=== PATIENT | female | born 1955 | race Caucasian/White ===

== ENCOUNTER → 2017-06-29 13:42 | Outpatient (REF) | payer OTHER, MEDICAID, SELFPAY ==
[2017-06-29 13:50] LABS: Microscopic, Urine URINE MICROSCOPIC (MICROSCOPIC)
[2017-06-29 14:12] LABS: Appearance,Urine CLOUDY (Clear); Blood, Urine 2+ (Negative); Color,Urine YELLOW (Yellow); Glucose,Urine (UA) Negative (Negative); Ketones,Urine Negative (Negative); Leukocyte Esterase,Urine 2+ (Negative); Nitrate,Urine POSITIVE (Negative); Protein,Urine 2+ (Negative)
[2017-06-29 14:14] LABS: Bilirubin,Urine Negative (Negative)
[2017-06-29 14:20] LABS: Amphetamine/Metha Screen,Urine Negative ng/mL (<1000); Barbiturates Screen,Urine Positive ng/mL (<200); Benzodiazepines Screen,Urine Positive ng/mL (200); Cannabinoid Screen,Urine Negative ng/mL (<50); Cocaine Screen,Urine Negative ng/g (<300); Methadone Screen,Urine Negative ng/mL (<300); Opiate Screen,Urine Positive ng/mL (<300); Phencyclidine Screen,Urine Negative ng/mL (<25)
[2017-06-29 14:40] LABS: WBC,Urine 50-100 #/hpf (0-3)
[2017-06-29 14:41] LABS: Bacteria,Urine 4+ /lpf; Hyaline Casts,Urine Occasional #/lpf (0); Other Crystals,Urine 1+ /lpf; Triple Phosphate Crystal,Urine 1+ /lpf
== END ==
LOC: LAB 13:42
PROVIDERS: Visit Provider Emergency Medicine
DX: R30.9 Painful micturition, unspecified; R10.9 Unspecified abdominal pain
CPT/HCPCS: 80305; 81001; 87086; 87088; 87186

== ENCOUNTER 2017-06-30 11:35 | Outpatient (CLI) | payer OTHER, MEDICAID, SELFPAY ==
[2017-06-30 11:38] VITALS: BMI 37.3
[2017-06-30 13:28] LABS: Basophils # 0.1 K/mm3 (0-0.2); Basophils % 0.4 % (0.1-2.0); Eosinophils % 0.2 % (0.1-12.0); Hematocrit 39.9 % (37.0-47.0); Hemoglobin 12.6 g/dL (12.2-16.2); Lymphocytes # 2.1 K/mm3 (0.7-4.5); Lymphocytes % 10.7 K/mm3 (10-50); MANUAL DIFFERENTIAL MANUAL DIFFERENTIAL (MANUAL DIFF); Mean Corpuscular HGB Conc 31.5 g/dL (31.8-35.4); Mean Corpuscular Hemoglobin 28.7 pg (27.0-31.2); Mean Corpuscular Volume 91.3 fl (81-99); Mean Platelet Volume 7.8 fl (7.4-10.4); Monocytes # 0.8 K/mm3 (0.1-1.0); Monocytes % 3.9 % (1.7-9.3); Neutrophils # 16.4 K/mm3 (1.8-7.8); Neutrophils % 84.7 % (37.0-80.0); Platelet Count 321 K/mm3 (142-424); Red Blood Count 4.37 M/mm3 (4.20-5.40); Red Cell Distribution Width 13.7 % (11.5-17.5); White Blood Count 19.4 K/mm3 (4.8-10.8)
[2017-06-30 13:44] LABS: Alanine Aminotransferase 23 U/L (12-78); Albumin Level 2.2 gm/dL (3.4-5.0); Albumin/Globulin Ratio 0.4 (1.1-1.8); Alkaline Phosphatase 156 U/L (46-116); Anion Gap 8.4 mEq/L (5-15); Aspartate Amino Transferase 39 U/L (15-37); Bilirubin,Total 0.6 mg/dL (0.2-1.0); Blood Urea Nitrogen 24 mg/dL (7-18); Calcium 11.5 mg/dL (8.5-10.1); Chloride 86 mmol/L (98-107); Creatinine Clearance Estimated 94 mL/min (0-300); Creatinine,Serum 0.79 mg/dL (0.55-1.02); Estimated Glomerular Filt Rate 74 ml/min (>60); GFR (African American) 89 ML/MIN (>60); Globulin 5.8 gm/dl (1.3-3.2); Glucose 137 mg/dL (74-106); Potassium 3.4 mmoL/L (3.5-5.1); Sodium 133 mmol/L (136-145)
[2017-06-30 13:51] LABS: Carbon Dioxide 42 mmol/L (21.0-32.0)
[2017-06-30 14:03] LABS: Lymphocytes % 8 % (10-50); Monocytes % 3 % (2-9); Neutrophils % 89 % (42-76); Total Cells Counted 100
[2017-06-30 14:04] LABS: Platelet Estimate Normal
== END 2017-06-30 13:25 | disposition home or self-care (01) ==
LOC: INF 11:36
PROVIDERS: PCP Emergency Medicine; Visit Provider Emergency Medicine
DX: R10.9 Unspecified abdominal pain (principal); R30.9 Painful micturition, unspecified; Z45.2 Encounter for adjustment and management of vascular access device
CPT/HCPCS: 80053; 85007; 85025; 96374; J1642

== ENCOUNTER → 2017-07-17 13:18 | Outpatient (REF) | payer MEDICAID, SELFPAY ==
[2017-07-17 13:22] LABS: Microscopic, Urine URINE MICROSCOPIC (MICROSCOPIC)
[2017-07-17 13:26] LABS: Appearance,Urine TURBID (Clear); Blood, Urine 2+ (Negative); Color,Urine YELLOW (Yellow); Glucose,Urine (UA) Negative (Negative); Ketones,Urine TRACE (Negative); Leukocyte Esterase,Urine 3+ (Negative); Nitrate,Urine POSITIVE (Negative); Protein,Urine 2+ (Negative); Specific Gravity, Urine 1.015 (1.005-1.030)
[2017-07-17 13:33] LABS: Bilirubin,Urine Negative (Negative)
[2017-07-17 13:34] LABS: Bacteria,Urine 4+ /lpf; RBC,Urine 20-50 #/hpf (0-3); Squamous Epithelial Cell,Urine 20-50 #/hpf (0-5); WBC,Urine TNTC #/hpf (0-3)
== END ==
LOC: LAB 13:18
PROVIDERS: Visit Provider Emergency Medicine
DX: N39.0 Urinary tract infection, site not specified (principal)
CPT/HCPCS: 81001; 87086; 87088; 87186

== ENCOUNTER → 2017-08-07 08:56 | Outpatient (REF) | payer OTHER, MEDICAID, SELFPAY ==
[2017-08-07 11:08] LABS: Amphetamine/Metha Screen,Urine Negative ng/mL (<1000); Barbiturates Screen,Urine Positive ng/mL (<200); Benzodiazepines Screen,Urine Positive ng/mL (<200); Cannabinoid Screen,Urine Negative ng/mL (<50); Cocaine Screen,Urine Negative ng/mL (<300); Methadone Screen,Urine Negative ng/mL (<300); Opiate Screen,Urine Positive ng/mL (<300); Phencyclidine Screen,Urine Negative ng/mL (<25)
== END ==
LOC: LAB 08:56
PROVIDERS: Visit Provider Emergency Medicine
DX: Z79.899 Other long term (current) drug therapy (principal)
CPT/HCPCS: 80305

== ENCOUNTER 2017-08-11 20:34 | Observation (INO) ==
[2017-08-11 20:44] LABS: ABG Base Excess 13.8 mmol/L (-2.4-2.3); ABG HCO3 38.1 mmhg (22.0-26.0); ABG Oxygen Saturation 96 % (90-100); ABG PH 7.44 mmol/L (7.35-7.45); ABG PO2 98.5 mmhg (80-100); ABG TCO2 39.8 mmhg (23-27)
[2017-08-11 21:15] LABS: Basophils % 0.2 % (0.1-2.0); Eosinophils % 0.1 % (0.1-12.0); Hematocrit 32.6 % (37.0-47.0); Hemoglobin 9.1 g/dL (12.2-16.2); Lymphocytes # 1.7 K/mm3 (0.7-4.5); Lymphocytes % 8.6 K/mm3 (10-50); Mean Corpuscular Hemoglobin 30.9 pg (27.0-31.2); Mean Corpuscular Volume 110.7 fl (81-99); Mean Platelet Volume 7.2 fl (7.4-10.4); Monocytes # 0.9 K/mm3 (0.1-1.0); Monocytes % 4.5 % (1.7-9.3); Neutrophils # 16.7 K/mm3 (1.8-7.8); Neutrophils % 86.6 % (37.0-80.0); Platelet Count 508 K/mm3 (142-424); Red Blood Count 2.95 M/mm3 (4.20-5.40); Red Cell Distribution Width 17.5 % (11.5-17.5); White Blood Count 19.2 K/mm3 (4.8-10.8)
[2017-08-11 21:25] LABS: Albumin Level 2.6 gm/dL (3.4-5.0); Albumin/Globulin Ratio 0.6 (1.1-1.8); Anion Gap 7.6 mEq/L (5-15); Bilirubin,Total 0.3 mg/dL (0.2-1.0); Calcium 9.2 mg/dL (8.5-10.1); Globulin 4.1 gm/dl (1.3-3.2); Potassium 3.6 mmoL/L (3.5-5.1); Total Protein,Serum 6.7 gm/dL (6.4-8.2)
[2017-08-11 21:53] LABS: Allen's Test Acceptable; Oxygen 46% 7LPM NC %
--- NOTE | 2017-08-11 22:05 | Emergency Department Note ---
ED Disposition Clinical Impression: Acute exacerbation of chronic obstructive airways disease, Bronchitis Disposition: Admitted as Observation Condition on Discharge: Good - Critical Care Critical Care Time: No Attestation: On 08/11/17, the high probability of a clinically significant, sudden or life threatening deterioration of the following system(s) required my full and direct attention, intervention and personal management. The time I documented below is in addition to time spent performing reported procedures but includes the following listed in this critical care notation. Medical Decision Making - Medical Records Medical records reviewed: Yes: I reviewed the patient's medical records. - Saurabh Inquiry Pt receiving controlled substance: No Vital Signs: 08/11/17 20:34 08/11/17 21:15 08/11/17 22:16 Pulse Rate Pulse Rate [Right Brachial] 90 133 H Respiratory Rate 24 20 Blood Pressure [Right Arm] 152/11 123/86 Blood Pressure Mean [Right Arm] 58 98 Blood Pressure Source [Right Arm] Automatic Cuff Automatic Cuff Blood Pressure Position [Right Arm] Sitting Sitting 02 Sat by Pulse Oximetry 88 L 93 L 94 L Oxygen Delivery Method Non-Rebreather Oxygen Flow Rate (LPM) 65 08/11/17 22:48 08/11/17 23:46 08/11/17 23:56 Pulse Rate 126 H Pulse Rate [Right Brachial] 131 H Respiratory Rate 18 Blood Pressure [Right Arm] 158/91 Blood Pressure Mean [Right Arm] 113 Blood Pressure Source [Right Arm] Automatic Cuff Blood Pressure Position [Right Arm] Sitting 02 Sat by Pulse Oximetry 94 L 94 L Oxygen Delivery Method Venturi Mask Oxygen Flow Rate (LPM) 12 08/12/17 00:34 08/12/17 01:04 Pulse Rate Pulse Rate [Right Brachial] 141 H 121 H Respiratory Rate 20 24 Blood Pressure [Right Arm] 138/87 108/55 Blood Pressure Mean [Right Arm] 104 72 Blood Pressure Source [Right Arm] Automatic Cuff Automatic Cuff Blood Pressure Position [Right Arm] Sitting 02 Sat by Pulse Oximetry 94 L 94 L Oxygen Delivery Method Oxygen Flow Rate (LPM) - Lab Data Lab results reviewed: Yes: I reviewed the patient's lab results. Lab Results 08/11/17 20:41: Specimen Source Right radial, O2 % 46% 7lpm nc, ABG pH 7.44, ABG pCO2 58.0 H, ABG pO2 98.5, ABG HCO3 38.1 H, ABG Total CO2 39.8 H, ABG O2 Saturation 96, ABG Base Excess 13.8 H, Huy Test Acceptable 08/11/17 21:00: WBC 19.2 H, RBC 2.95 L, Hgb 9.1 L, Hct 32.6 L, MCV 110.7 H, MCH 30.9, MCHC 28.0 L, RDW 17.5, Plt Count 508 H, MPV 7.2 L, Neut % (Auto) 86.6 H, Lymph % (Auto) 8.6 L, [place] % (Auto) 4.5, Eos % (Auto) 0.1, Baso % (Auto) 0.2, Neut # (Auto) 16.7 H, Lymph # (Auto) 1.7, [place] # (Auto) 0.9, Eos # (Auto) 0.0, Baso # (Auto) 0.0, Total Counted 100, Neutrophils % (Manual) 86 H, Lymphocytes % (Manual) 10, Monocytes % (Manual) 4, Platelet Estimate Normal, Macrocytosis 1+ 08/11/17 21:00: Sodium 137, Potassium 3.6, Chloride 95 L, Carbon Dioxide 38 H, Anion Gap 7.6, BUN 14, Creatinine 0.65, Estimated Creat Clear 75, Estimated GFR 92, Est GFR ( Amer) 112, Glucose 176 H, Calcium 9.2, Total Bilirubin 0.3 , AST 26, ALT 22, Alkaline Phosphatase 158 H, Total Protein 6.7, Albumin 2.6 L, Globulin 4.1 H, Albumin/Globulin Ratio 0.6 L 08/11/17 21:00: Lactic Acid 2.7 H 08/11/17 23:27: Specimen Source Right radial, O2 % 55%, 40lpm, ABG pH 7.43, ABG pCO2 53.1 H, ABG pO2 88.6, ABG HCO3 34.3 H, ABG Total CO2 35.9 H, ABG O2 Saturation 95, ABG Base Excess 9.9 H, Huy Test Patient unable Result diagrams: 08/11/17 21:00 08/11/17 21:00 Orders (Tests/Meds): ED MEDICATIONS Generic Name Dose Route Start Last Admin Trade Name Freq PRN Reason Stop Dose Admin Levofloxacin/Dextrose 500 mg in 100 mls @ 100 mls/hr 08/12/17 01:30 Levaquin 500mg/100ml Premix IV 08/26/17 01:29 Q24H NAT Protocol Sodium Chloride 2 ml 08/11/17 22:04 Saline Flush 10ml Syringe IV 09/10/17 22:03 NEEDED PRN to Dilute Lorazepam inj Discontinued Medications Generic Name Dose Route Start Last Admin Trade Name Ming PRN Reason Stop Dose Admin Albuterol/Ipratropium 3 ml 08/11/17 23:43 08/11/17 23:45 Duoneb 3ml Neb IH 08/11/17 23:44 3 ml ONCE ONE Administration Furosemide 40 mg 08/11/17 21:21 08/11/17 21:40 Lasix 40mg/4ml Vial IV 08/11/17 21:22 40 mg ONCE ONE Administration Lorazepam 0.5 mg 08/11/17 22:04 08/11/17 22:11 Ativan 2mg/Ml Vial IV 08/11/17 22:05 0.5 mg ONCE ONE Administration Methylprednisolone Sodium Succinate 125 mg 08/11/17 21:22 08/11/17 21:30 Solu-Medrol 125mg/2ml Vial IV 08/11/17 21:23 125 mg ONCE ONE Administration ORDERS Category Date Time Status XR chest portable Stat Exams 08/11/17 20:43 Taken Urinalysis and Microscopic Stat Lab 08/11/17 20:43 Ordered Blood Culture Stat Micro 08/11/17 21:00 Received ABG [Arterial Blood Gas] Stat RT 08/11/17 20:38 Ordered - Radiology Data #1 Image(s): Chest Image Reviewed: Yes I reviewed the patient's radiology image Preliminary Findings: Abnormal (chronic changes ) - ECG Data Tracing #1 I reviewed this ECG and interpreted as documented below: Arrhythmias present: sinus tach Ischemic changes: non-specific ST-T wave changes Resp/SOB HPI - General Chief Complaint: Shortness of Breath/Dyspnea Stated Complaint: SOA Time Seen by Provider: 08/11/17 20:40 Mode of Arrival: EMS Source of Information: Patient, EMS, Medical Record Limitations: No Limitations Description of Symptoms (Recalled from ER Triage Doc. 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 and no fever or chest pain - MD Complaint: shortness of breath Onset (ago): hour(s) Severity: moderate Known history of: COPD, congestive heart failure Associated symptoms: cough Treatment prior to arrival: oxygen - Related Data Home oxygen amount: 4 liters Home Medications Medication Instructions Recorded Confirmed alprazolam 1 mg tablet 1 mg PO ONCE 04/27/17 06/02/17 aripiprazole 2 mg tablet 5 mg PO ONCE 04/27/17 06/02/17 baclofen 10 mg tablet 5 mg PO TID 04/27/17 06/02/17 bumetanide 2 mg tablet 2 mg PO BID 04/27/17 06/02/17 citalopram 20 mg tablet 20 mg PO ONCE 04/27/17 06/02/17 dexamethasone 4 mg tablet 4 mg PO Q12H 04/27/17 06/02/17 gabapentin 800 mg tablet 800 mg PO TID 04/27/17 06/02/17 lactulose 20 gram oral packet 20 g PO BID 04/27/17 06/02/17 nicotine 10 mg inhalation cartridge 1 inh INHALATION BID PRN 04/27/17 06/02/17 promethazine 25 mg tablet 25 mg PO Q6H PRN 04/27/17 06/02/17 Oxycodone HCl [Oxycodone (IR) 30mg 60 mg PO Q4HP PRN 06/01/17 06/02/17 Tab] Cefdinir [Omnicef 300mg Capsule] 300 mg PO BID 06/02/17 06/02/17 levoFLOXacin [Levaquin 750mg 750 mg PO DAILY 06/02/17 06/02/17 tablet] methylPREDNISolone [Medrol] 4 mg PO DIRECTED 06/02/17 06/02/17 Allergies Allergy/AdvReac Type Severity Reaction Status Date / Time aspirin Allergy Verified 06/01/17 11:28 azithromycin Allergy Verified 06/01/17 11:28 ketorolac [From Toradol] AdvReac Verified 06/01/17 11:28 Macrolide/Antibacterial Allergy Unknown Uncoded 01/26/17 15:33 Nonsteroidal Allergy Unknown Uncoded 01/26/17 15:33 Antiinflammatory Drug Tetracycline Allergy Unknown Uncoded 01/26/17 15:33 ERYTHROMYCIN AdvReac Unknown HURT Uncoded 01/26/17 15:33 STOMACH [facility] History I have reviewed the patient's past medical history: Yes Medical History: Reports:: Cancer (colon) - Social History Smoking Status: Current every day smoker Tobacco Type: cigarettes Alcohol Intake: never - Psychiatric History Expresses thoughts of harming self/others: None Suicide Plan Description: No Plan ROS Obtained: Yes All systems reviewed & no additional complaints - Constitutional Constitutional: Denies fever(s) - Eyes Eyes: Denies change in vision - ENT Ears, Nose, Mouth, and Throat: Denies sore throat - Cardiovascular Cardiovascular: Denies chest pain, Reports dyspnea - Respiratory Respiratory: Yes as per HPI, No change in phlegm color, Yes cough, No coughing up blood - Gastrointestinal Gastrointestingal: Denies: abdominal pain, vomiting - Genitourinary Female Genitourinary: Denies hematuria - Musculoskeletal Musculoskeletal: Denies joint pain - Integumentary/Breasts Skin/Breast: Denies rash - Neurologic Neurologic: Denies seizure-like activity Physical Exam - General General appearance: in no apparent distress - Head Head exam: normocephalic - Eye Eye exam: Present: PERRL, EOMI. Absent: scleral icterus - ENT ENT exam: Present: mucous membranes dry - Neck Neck exam: Present: trachea midline - Respiratory Respiratory exam: Present: wheezes. Absent: respiratory distress - Cardiovascular Cardiovascular exam: Present: regular rate, systolic murmur, +S4 - Abdominal Exam Abdominal exam: Present: soft - Extremities Exam Extremities exam: Absent: calf tenderness - Neurological Exam Neurological exam: Present: alert, CN II-XII intact - Psychiatric Psychiatric exam: Present: anxious - Skin Skin exam: Absent: rash
[2017-08-11 22:09] LABS: Lymphocytes % 10 % (10-50); Monocytes % 4 % (2-9); Neutrophils % 86 % (42-76); Total Cells Counted 100
[2017-08-11 22:10] LABS: Macrocytosis 1+
[2017-08-11 23:29] LABS: ABG Base Excess 9.9 mmol/L (-2.4-2.3); ABG HCO3 34.3 mmhg (22.0-26.0); ABG Oxygen Saturation 95 % (90-100); ABG PH 7.43 mmol/L (7.35-7.45); ABG PO2 88.6 mmhg (80-100); ABG TCO2 35.9 mmhg (23-27)
[2017-08-11 23:32] LABS: Allen's Test Patient Unable
[2017-08-11 23:33] LABS: ABG PCO2 53.1 mmhg (35.0-45.0)
[2017-08-12 05:35] LABS: Basophils % 0.1 % (0.1-2.0); Hematocrit 26.1 % (37.0-47.0); Lymphocytes # 1.3 K/mm3 (0.7-4.5); Lymphocytes % 8.7 K/mm3 (10-50); Mean Corpuscular HGB Conc 27.9 g/dL (31.8-35.4); Mean Corpuscular Hemoglobin 31.3 pg (27.0-31.2); Mean Corpuscular Volume 112.2 fl (81-99); Mean Platelet Volume 7.2 fl (7.4-10.4); Monocytes # 0.6 K/mm3 (0.1-1.0); Monocytes % 3.9 % (1.7-9.3); Neutrophils % 87.3 % (37.0-80.0); Platelet Count 351 K/mm3 (142-424); Red Blood Count 2.32 M/mm3 (4.20-5.40); Red Cell Distribution Width 16.4 % (11.5-17.5); White Blood Count 14.9 K/mm3 (4.8-10.8)
[2017-08-12 05:45] LABS: Hemoglobin 7.3 g/dL (12.2-16.2)
[2017-08-12 06:02] LABS: Anion Gap 2.9 mEq/L (5-15); Calcium 8.8 mg/dL (8.5-10.1); Potassium 3.9 mmoL/L (3.5-5.1)
--- NOTE | 2017-08-12 07:35 | Pharmacy Consult Notes ---
[facility] Pharmacy VTE Monitoring - Patient Demographics Admission date: 08/12/17 Report Date: 08/12/17 Time: 07:35 Allergies/Adverse Reactions: Patient Allergies aspirin Allergy (Verified 06/01/17 11:28) azithromycin Allergy (Verified 06/01/17 11:28) ketorolac [From Toradol] Adverse Reaction (Verified 06/01/17 11:28) Macrolide/Antibacterial Allergy (Unknown, Uncoded 01/26/17 15:33) Nonsteroidal Antiinflammatory Drug Allergy (Unknown, Uncoded 01/26/17 15:33) Tetracycline Allergy (Unknown, Uncoded 01/26/17 15:33) ERYTHROMYCIN Adverse Reaction (Unknown, Uncoded 01/26/17 15:33) HURT STOMACH Height: 1.68 m Weight: 96.87 kg Patient Problems: Current Active Problems Acute exacerbation of chronic obstructive airways disease (Acute) Bronchitis (Acute) - VTE Risk Labs: VTE Related Lab Results Hgb 7.3 g/dL (12.2-16.2) L* 08/12/17 05:15 Hct 26.1 % (37.0-47.0) L 08/12/17 05:15 Plt Count 351 K/mm3 (142-424) D 08/12/17 05:15 BUN 15 mg/dL (7-18) 08/12/17 05:15 Creatinine 0.63 mg/dL (0.55-1.02) 08/12/17 05:15 Estimated Creat Clear 89 mL/min (0-300) 08/12/17 05:15 Was VTE Risk Assessment Performed: Yes VTE Score: 10 VTE Risk Level: Moderate Risk - Prophylaxis VTE Prophylaxis Ordered?: Yes Types of VTE Prophylaxis: TEDS Knee High Location of Applied Device: Bilateral Lower Extremeties - VTE Diagnosis Confirmed Treatment or plan recommended: Continue Current Treatment
[2017-08-12 08:51] LABS: Lymphocytes % 7 % (10-50); Monocytes % 4 % (2-9); Neutrophils % 87 % (42-76); Total Cells Counted 100
[2017-08-12 08:52] LABS: Macrocytosis 2+
--- NOTE | 2017-08-12 10:16 | History & Physical Report ---
*Admission Date: 08/12/17 *Chief complaint: sob *History of present illness: this wf was sent from [facility] for eval of sob with hx of chf and copd - she was seen in the ed and treated with o2 and breathing treatment and was admitted with abx and steroids - pt with known cancer and has chronic anxiety and pain - [facility] History I have reviewed the patient's past medical history: Yes Medical History: Reports:: Cancer (colon), Congestive Heart Failure, MRSA (arm and leg) Denies:: Diabetes Mellitus Type 1, Diabetes Mellitus Type 2 Other Medical History: Reports: Arthritis, Chemotherapy, Sinus Problems ( seasonal allergies) Other Surgeries: Yes: Cancer Surgery (colon/cervical/lung), Cholecystectomy, Colon Resection, Hysterectomy-TotalComment Only: Other (2 back sx) Amputation: No Fractures: Yes - *Social History Educational Level: Completed High School Smoking Status: Former smoker Tobacco Type: cigarettes # Packs/Day (cigarettes): 2 #Yrs smoked (if former smoker): 46 Smoking End Date: [id number] Alcohol Intake: never Occupational Status: retired Housing: correction - Psychiatric History Expresses thoughts of harming self/others: None Suicide Plan Description: No Plan Review of Systems - Review of Systems Review of systems:: pertinent systems reviewed and negative unless documented below - Constitutional Denies fever(s) - Eyes Denies change in vision - ENT Denies dizziness - *Cardiovascular Denies chest pain - *Respiratory Reports shortness of breath, Denies coughing up blood - *Gastrointestinal Denies abdominal pain - *Genitourinary Denies blood in urine - *Musculoskeletal Denies joint pain - Integumentary/Breasts Denies rash - *Neurologic Denies seizure-like activity - Psychiatric Reports anxiety Meds Home Medications Medication Instructions Recorded Confirmed Type alprazolam 1 mg tablet 0.5 mg PO ONCE 04/27/17 08/12/17 History citalopram 20 mg tablet 20 mg PO ONCE 04/27/17 08/12/17 History dexamethasone 4 mg tablet 4 mg PO Q12H 04/27/17 08/12/17 History gabapentin 800 mg tablet 800 mg PO TID 04/27/17 08/12/17 History lactulose 20 gram oral packet 10 gm PO BID 04/27/17 08/12/17 History nicotine 10 mg inhalation cartridge 1 inh INHALATION BID PRN 04/27/17 08/12/17 History promethazine 25 mg tablet 25 mg PO Q6H PRN 04/27/17 08/12/17 History Oxycodone HCl [Oxycodone (IR) 30mg 60 mg PO Q4HP PRN 06/01/17 08/12/17 History Tab] Acetaminophen [Tylenol 500mg 500 mg PO Q4HP PRN 08/12/17 08/12/17 History tablet] Ciprofloxacin HCl [Cipro 500mg Tab] 500 mg PO BID 08/12/17 08/12/17 History Docusate Sodium [Colace 250mg 250 mg PO BIDP PRN 08/12/17 08/12/17 History capsule] Lansoprazole 15 mg PO DAILY 08/12/17 08/12/17 History Oxybutynin Chloride [Ditropan Xl] 5 mg PO BID 08/12/17 08/12/17 History Phenazopyridine HCl [Pyridium 200 pow PO TID 08/12/17 08/12/17 History 200mg Tablet] Polyethylene Glycol 3350 [Miralax 17 gm PO DAILY 08/12/17 08/12/17 History Powder] Sennosides [Senna Laxative] 8.6 mg PO BIDP PRN 08/12/17 08/12/17 History Simethicone [Mylicon 80mg Chewable 80 mg PO QID PRN 08/12/17 08/12/17 History Tablet] guaiFENesin [Mucinex 600mg tablet] 600 mg PO BID 08/12/17 08/12/17 History metroNIDAZOLE [Flagyl] 500 mg PO BID 08/12/17 08/12/17 History Allergies Allergy/AdvReac Type Severity Reaction Status Date / Time aspirin Allergy Verified 06/01/17 11:28 azithromycin Allergy Verified 06/01/17 11:28 ketorolac [From Toradol] AdvReac Verified 06/01/17 11:28 Macrolide/Antibacterial Allergy Unknown Uncoded 01/26/17 15:33 Nonsteroidal Allergy Unknown Uncoded 01/26/17 15:33 Antiinflammatory Drug Tetracycline Allergy Unknown Uncoded 01/26/17 15:33 ERYTHROMYCIN AdvReac Unknown HURT Uncoded 01/26/17 15:33 STOMACH Exam Vital signs and Labs for Last 24 Hours: Temp Pulse Resp BP Pulse Ox 97.0 F L 104 H 22 129/64 91 L 08/12/17 07:57 08/12/17 07:57 08/12/17 07:57 08/12/17 07:57 08/12/17 07:57 Laboratory Results - last 24 hr 08/11/17 20:41: Specimen Source Right radial, O2 % 46% 7lpm nc, ABG pH 7.44, ABG pCO2 58.0 H, ABG pO2 98.5, ABG HCO3 38.1 H, ABG Total CO2 39.8 H, ABG O2 Saturation 96, ABG Base Excess 13.8 H, Huy Test Acceptable 08/11/17 21:00: WBC 19.2 H, RBC 2.95 L, Hgb 9.1 L, Hct 32.6 L, MCV 110.7 H, MCH 30.9, MCHC 28.0 L, RDW 17.5, Plt Count 508 H, MPV 7.2 L, Neut % (Auto) 86.6 H, Lymph % (Auto) 8.6 L, [place] % (Auto) 4.5, Eos % (Auto) 0.1, Baso % (Auto) 0.2, Neut # (Auto) 16.7 H, Lymph # (Auto) 1.7, [place] # (Auto) 0.9, Eos # (Auto) 0.0, Baso # (Auto) 0.0, Total Counted 100, Neutrophils % (Manual) 86 H, Lymphocytes % (Manual) 10, Monocytes % (Manual) 4, Platelet Estimate Normal, Macrocytosis 1+ 08/11/17 21:00: Sodium 137, Potassium 3.6, Chloride 95 L, Carbon Dioxide 38 H, Anion Gap 7.6, BUN 14, Creatinine 0.65, Estimated Creat Clear 75, Estimated GFR 92, Est GFR ( Amer) 112, Glucose 176 H, Calcium 9.2, Total Bilirubin 0.3 , AST 26, ALT 22, Alkaline Phosphatase 158 H, Total Protein 6.7, Albumin 2.6 L, Globulin 4.1 H, Albumin/Globulin Ratio 0.6 L 08/11/17 21:00: Lactic Acid 2.7 H 08/11/17 23:27: Specimen Source Right radial, O2 % 55%, 40lpm, ABG pH 7.43, ABG pCO2 53.1 H, ABG pO2 88.6, ABG HCO3 34.3 H, ABG Total CO2 35.9 H, ABG O2 Saturation 95, ABG Base Excess 9.9 H, Huy Test Patient unable 08/12/17 01:30: Lactic Acid Fup @ 4Hr 2.4 H 08/12/17 02:20: Troponin I 0.18 H 08/12/17 03:40: Lactic Acid Fup @ 2Hr 3.0 H 08/12/17 05:15: Troponin I 0.23 H 08/12/17 05:15: WBC 14.9 H, RBC 2.32 L, Hgb 7.3 L*, Hct 26.1 L, MCV 112.2 H, MCH 31.3 H, MCHC 27.9 L, RDW 16.4, Plt Count 351 D, MPV 7.2 L, Neut % (Auto) 87.3 H, Lymph % (Auto) 8.7 L, [place] % (Auto) 3.9, Eos % (Auto) 0.0 L, Baso % ( Auto) 0.1, Neut # (Auto) 13.0 H, Lymph # (Auto) 1.3, [place] # (Auto) 0.6, Eos # ( Auto) 0.0, Baso # (Auto) 0.0, Total Counted 100, Neutrophils % (Manual) 87 H, Band Neutrophils % 2.0, Lymphocytes % (Manual) 7 L, Monocytes % (Manual) 4, Platelet Estimate Normal, Macrocytosis 2+ 08/12/17 05:15: Sodium 136, Potassium 3.9, Chloride 97 L, Carbon Dioxide 40 H, Anion Gap 2.9 L, BUN 15, Creatinine 0.63, Estimated Creat Clear 89, Estimated GFR 96, Est GFR ( Amer) 116, Glucose 129 H D, Calcium 8.8, Troponin I 0.22 H I & O for Last 24 hours: Intake & Output 08/09/17 08/10/17 08/11/17 08/12/17 11:59 11:59 11:59 11:59 Intake Total 820 / 820 Balance 820 / 820 Weight 213 lb 9 oz - Constitutional no acute distress, obese - *Routine HEENT Exam Head: Present: normocephalic Eye: Present: EOMI, PERRL ENT: Present: mucous membranes dry - *Routine Neck Exam Present: supple - *Routine Respiratory Exam Present: decreased breath sounds - *Routine Cardiovascular Exam Present: RRR, murmur, S4 - *Routine Abdominal Exam Present: soft - *Routine Extremities Exam Present: edema. Absent: calf tenderness - *Routine Skin Exam Present: intact - *Routine Neurological Exam Present: alert, CN II-XII intact - Routine Psychiatric Exam Present: anxious H&P: Result - Labs Labs: Short CBC 08/11/17 08/12/17 Range/Units 21:00 05:15 WBC 19.2 H 14.9 H (4.8-10.8) K/mm3 Hgb 9.1 L 7.3 L* (12.2-16.2) g/dL Hct 32.6 L 26.1 L (37.0-47.0) % Plt Count 508 H 351 D (142-424) K/mm3 BMP 08/11/17 08/12/17 21:00 05:15 Sodium 137 136 Potassium 3.6 3.9 Chloride 95 L 97 L Carbon Dioxide 38 H 40 H BUN 14 15 Creatinine 0.65 0.63 Glucose 176 H 129 H D Calcium 9.2 8.8 Cardiac Enzymes 08/12/17 08/12/17 08/12/17 Range/Units 02:20 05:15 05:15 Troponin I 0.18 H 0.23 H 0.22 H (0.00-0.06) ng/ml Liver Function 08/11/17 Range/Units 21:00 Total Bilirubin 0.3 (0.2-1.0) mg/dL AST 26 (15-37) U/L ALT 22 (12-78) U/L Alkaline Phosphatase 158 H (46-116) U/L Albumin 2.6 L (3.4-5.0) gm/dL Assessment and Plan (1) Elevated troponin Current visit: Yes Status: Acute Category: Medical Code(s): R74.8 - Abnormal levels of other serum enzymes (2) Acute exacerbation of chronic obstructive airways disease Current visit: Yes Status: Acute Category: Medical Code(s): J44.1 - Chronic obstructive pulmonary disease with (acute) exacerbation (3) Bronchitis Current visit: Yes Status: Acute Category: Medical Code(s): J40 - Bronchitis, not specified as acute or chronic (4) Anemia Current visit: Yes Status: Acute Category: Medical Code(s): D64.9 - Anemia , unspecified
--- NOTE | 2017-08-12 11:14 | Consult Report ---
History of Present Illness Consult date: 08/12/17 Requesting physician: Danny Fenton Consult reason: shortness of breath Chief complaint: SOA Additional Medical History:: 1. Tobacco use, discontinued 3 months ago A. COPD 2. Hypertension 3. 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 Anemia 4. CHF, likely high output heart failure related to anemia, 08/2017 History of present illness: 61-year-old white female resident of an extended care facility was referred to the emergency department for hypoxia. She denies any chest pain but does note occasional chest pressure or heaviness with associated shortness of breath. She reportedly had a "silent heart attack" many years ago with no further workup. States she is breathing better at this time. Patient was admitted for treatment of her acute on chronic COPD exacerbation. Troponins have returned mildly elevated during her stay and cardiology has been consulted for evaluation recommendations. Patient's hemoglobin has dropped from 9.1 down to 7.3 with improvement in her white count from about 19,000 down to 14,000 on antibiotic therapy. EKG on admission showed sinus tachycardia at [address]-T abnormalities. Echocardiogram being performed on the patient at the time of exam and preliminarily shows preserved to hyperdynamic LVEF. [facility] History Medical History: Reports:: Cancer (colon), Congestive Heart Failure, MRSA (arm and leg) Denies:: Diabetes Mellitus Type 1, Diabetes Mellitus Type 2 Other Medical History: Reports: Arthritis, Chemotherapy, Sinus Problems ( seasonal allergies) Other Surgeries: Yes: Cancer Surgery (colon/cervical/lung), Cholecystectomy, Colon Resection, Hysterectomy-TotalComment Only: Other (2 back sx) Amputation: No Fractures: Yes - *Social History Educational Level: Completed High School Smoking Status: Former smoker Tobacco Type: cigarettes # Packs/Day (cigarettes): 2 #Yrs smoked (if former smoker): 46 Smoking End Date: [id number] Alcohol Intake: never Occupational Status: retired Housing: [facility] - Psychiatric History Expresses thoughts of harming self/others: None Suicide Plan Description: No Plan Meds Home Medications Medication Instructions Recorded Confirmed Type alprazolam 1 mg tablet 0.5 mg PO 5XDAY 04/27/17 08/12/17 History citalopram 20 mg tablet 20 mg PO DAILY 04/27/17 08/12/17 History dexamethasone 4 mg tablet 4 mg PO BID 04/27/17 08/12/17 History gabapentin 800 mg tablet 800 mg PO TID 04/27/17 08/12/17 History nicotine 10 mg inhalation cartridge 1 inh INHALATION NEEDED PRN 04/27/1706/25 History promethazine 25 mg tablet 25 mg PO Q8HP PRN 04/27/17 08/12/17 History Oxycodone HCl [Oxycodone (IR) 30mg 45 mg PO Q4H 06/01/17 08/12/17 History Tab] Acetaminophen [Tylenol 500mg 500 mg PO Q4HP PRN 08/12/17 08/12/17 History tablet] Ciprofloxacin HCl [Cipro 500mg Tab] 500 mg PO MOWEFR 08/12/17 08/12/17 History Docusate Sodium [Colace 250mg 250 mg PO BIDP PRN 08/12/17 08/12/17 History capsule] Lactulose [Lactulose 10gm/15ml 30 ml PO DAILY 08/12/17 08/12/17 History Oral Soln] Lansoprazole 15 mg PO DAILY 08/12/17 08/12/17 History Lidocaine [Lidoderm 5% transdermal 3 each TP DAILY 08/12/17 08/12/17 History patch] Oxybutynin Chloride [Ditropan Xl] 5 mg PO BID 08/12/17 08/12/17 History Phenazopyridine HCl [Pyridium 200 mg PO TID 08/12/17 08/12/17 History 200mg Tablet] Polyethylene Glycol 3350 [Miralax 17 gm PO DAILY 08/12/17 08/12/17 History Powder] Sennosides [Senna Laxative] 8.6 mg PO BIDP PRN 08/12/17 08/12/17 History Simethicone [Mylicon 80mg Chewable 160 mg PO QIDP PRN 08/12/17 08/12/17 History Tablet] guaiFENesin [Mucinex 600mg tablet] 1,200 mg PO BID 08/12/17 08/12/17 History metroNIDAZOLE [Flagyl] 500 mg PO BID 08/12/17 08/12/17 History Allergies Allergy/AdvReac Type Severity Reaction Status Date / Time aspirin Allergy Verified 06/01/17 11:28 azithromycin Allergy Verified 06/01/17 11:28 ketorolac [From Toradol] AdvReac Verified 06/01/17 11:28 Macrolide/Antibacterial Allergy Unknown Uncoded 01/26/17 15:33 Nonsteroidal Allergy Unknown Uncoded 01/26/17 15:33 Antiinflammatory Drug Tetracycline Allergy Unknown Uncoded 01/26/17 15:33 ERYTHROMYCIN AdvReac Unknown HURT Uncoded 01/26/17 15:33 STOMACH Review of Systems - *Cardiovascular Reports chest pain, Reports shortness of breath with activity - *Respiratory Reports shortness of breath with activity - *Gastrointestinal Reports abdominal pain - *Musculoskeletal Reports joint pain - *Neurologic Denies seizure-like activity, Denies dizziness Exam Vital signs and Labs for Last 24 Hours: Temp Pulse Resp BP Pulse Ox 97.0 F L 104 H 22 129/64 91 L 08/12/17 07:57 08/12/17 07:57 08/12/17 07:57 08/12/17 07:57 08/12/17 07:57 Laboratory Results - last 24 hr 08/11/17 20:41: Specimen Source Right radial, O2 % 46% 7lpm nc, ABG pH 7.44, ABG pCO2 58.0 H, ABG pO2 98.5, ABG HCO3 38.1 H, ABG Total CO2 39.8 H, ABG O2 Saturation 96, ABG Base Excess 13.8 H, Huy Test Acceptable 08/11/17 21:00: WBC 19.2 H, RBC 2.95 L, Hgb 9.1 L, Hct 32.6 L, MCV 110.7 H, MCH 30.9, MCHC 28.0 L, RDW 17.5, Plt Count 508 H, MPV 7.2 L, Neut % (Auto) 86.6 H, Lymph % (Auto) 8.6 L, [place] % (Auto) 4.5, Eos % (Auto) 0.1, Baso % (Auto) 0.2, Neut # (Auto) 16.7 H, Lymph # (Auto) 1.7, [place] # (Auto) 0.9, Eos # (Auto) 0.0, Baso # (Auto) 0.0, Total Counted 100, Neutrophils % (Manual) 86 H, Lymphocytes % (Manual) 10, Monocytes % (Manual) 4, Platelet Estimate Normal, Macrocytosis 1+ 08/11/17 21:00: Sodium 137, Potassium 3.6, Chloride 95 L, Carbon Dioxide 38 H, Anion Gap 7.6, BUN 14, Creatinine 0.65, Estimated Creat Clear 75, Estimated GFR 92, Est GFR ( Amer) 112, Glucose 176 H, Calcium 9.2, Total Bilirubin 0.3 , AST 26, ALT 22, Alkaline Phosphatase 158 H, Total Protein 6.7, Albumin 2.6 L, Globulin 4.1 H, Albumin/Globulin Ratio 0.6 L 08/11/17 21:00: Lactic Acid 2.7 H 08/11/17 23:27: Specimen Source Right radial, O2 % 55%, 40lpm, ABG pH 7.43, ABG pCO2 53.1 H, ABG pO2 88.6, ABG HCO3 34.3 H, ABG Total CO2 35.9 H, ABG O2 Saturation 95, ABG Base Excess 9.9 H, Huy Test Patient unable 08/12/17 01:30: Lactic Acid Fup @ 4Hr 2.4 H 08/12/17 02:20: Troponin I 0.18 H 08/12/17 03:40: Lactic Acid Fup @ 2Hr 3.0 H 08/12/17 05:15: Troponin I 0.23 H 08/12/17 05:15: WBC 14.9 H, RBC 2.32 L, Hgb 7.3 L*, Hct 26.1 L, MCV 112.2 H, MCH 31.3 H, MCHC 27.9 L, RDW 16.4, Plt Count 351 D, MPV 7.2 L, Neut % (Auto) 87.3 H, Lymph % (Auto) 8.7 L, [place] % (Auto) 3.9, Eos % (Auto) 0.0 L, Baso % ( Auto) 0.1, Neut # (Auto) 13.0 H, Lymph # (Auto) 1.3, [place] # (Auto) 0.6, Eos # ( Auto) 0.0, Baso # (Auto) 0.0, Total Counted 100, Neutrophils % (Manual) 87 H, Band Neutrophils % 2.0, Lymphocytes % (Manual) 7 L, Monocytes % (Manual) 4, Platelet Estimate Normal, Macrocytosis 2+ 08/12/17 05:15: Sodium 136, Potassium 3.9, Chloride 97 L, Carbon Dioxide 40 H, Anion Gap 2.9 L, BUN 15, Creatinine 0.63, Estimated Creat Clear 89, Estimated GFR 96, Est GFR ( Amer) 116, Glucose 129 H D, Calcium 8.8, Troponin I 0.22 H I & O for Last 24 hours: Intake & Output 08/09/17 08/10/17 08/11/17 08/12/17 11:59 11:59 11:59 11:59 Intake Total 820 / 820 Balance 820 / 820 Weight 213 lb 9 oz - *Routine Neck Exam Absent: JVD, carotid bruit - *Routine Respiratory Exam Present: decreased breath sounds, rhonchi - *Routine Cardiovascular Exam Present: RRR, murmur. Absent: gallop, rubs - *Routine Extremities Exam Present: edema - *Routine Neurological Exam Present: alert, oriented X3, moving all extremities Assessment and Plan (1) Elevated troponin Current visit: Yes Status: Acute Category: Medical Code(s): R74.8 - Abnormal levels of other serum enzymes (2) Acute exacerbation of chronic obstructive airways disease Current visit: Yes Status: Acute Category: Medical Code(s): J44.1 - Chronic obstructive pulmonary disease with (acute) exacerbation (3) Bronchitis Current visit: Yes Status: Acute Category: Medical Code(s): J40 - Bronchitis, not specified as acute or chronic (4) Anemia Current visit: Yes Status: Acute Category: Medical Code(s): D64.9 - Anemia , unspecified (5) High output congestive heart failure Current visit: Yes Status: Acute Category: Medical Code(s): I50.83 - High output heart failure (6) Cancer Current visit: No Status: Chronic Category: Medical Code(s): C80.1 - Malignant (primary) neoplasm, unspecified - Assessment and plan all Dx Assessment and Plan for all problems:: 1. Elevated troponins likely due to cardiac strain in the setting of acute on chronic exacerbation of COPD, hypoxia, anemia and stage IV colon cancer with hospice care. Preliminary echocardiogram shows preserved left ventricular ejection fraction. 2. Recommend transfusion to hemoglobin greater than 10 for improvement of shortness of breath and sinus tachycardia which should help with her CHF also. 3. Medical therapy only (calcium channel myrna or beta myrna if needed for blood pressure, heart rate and possible angina control) with no further cardiac workup in setting of terminal cancer and hospice care. 4. Continue diuretics PRN for edema with monitoring of renal function.
--- NOTE | 2017-08-12 12:56 | Cardiology Report ---
PROCEDURE: 2-D M-mode and color Doppler study INDICATIONS FOR THE TEST: Chest pain COPDx Heart Murmurx Tobacco Smokingx Palpitations Fatigue Syncope Edema Hypertension Diabetes Mellitus Rheumatic Fever SOBxDOE Obesity Hyperlipidemia Family History HD Additional History CHF PATIENT INFORMATION HEIGHT: 5'6'' WEIGHT: 213 GENDER: Female B/P: 138/87 2-D/M-MODE INTERPRETATION: 2-D MEASUREMENTS OBSERVED VALUES IN CMS Right Ventricular Dimension (RVDd) 2.5 Interventricular Septum (Thickness)(IVsd) 1.0 Left Ventricular Internal Dimensions(LVIDd) 4.0 Left Ventricular Posterior Wall (Thickness)(LVPWd) 1.1 Aortic Root 2.8 Aortic Cusp Separation 2.0 Left Atrial Dimensions (LAD) 2.7 2D 1. Left atrium is qualitatively mildly enlarged, left ventricle is normal size, mild concentric left ventricular hypertrophy, visually estimated ejection fraction 55% with no obvious regional wall motion abnormality. 2. The right atrium and right ventricle are normal size and contractility. 3. The aortic valve is minimally thickened and fibrosed. 4. The mitral and tricuspid valvular grossly normal. 5. The pulmonic valve is poorly visualized. 6. No significant pericardial effusion noted. DOPPLER INTERROGATION: Doppler interrogation of the aortic, mitral and tricuspid valvular presence of mild mitral and tricuspid regurgitation, tricuspid and jet velocity insufficient for calculation of the right ventricular systolic pressure, grade 1 diastolic dysfunction seen with tissue Doppler evidence of raised left atrial pressure. CONCLUSION: 1. Mildly enlarged left atrium, normal left ventricular size, mild concentric left ventricular hypertrophy, visually estimated ejection fraction 55% with no obvious regional wall motion abnormality, grade 1 diastolic dysfunction seen with tissue Doppler evidence of raised left atrial pressure. 2. Mild mitral and tricuspid regurgitation 3. No significant pericardial effusion noted.
[2017-08-12 22:50] LABS: Hematocrit 34.7 % (37.0-47.0)
[2017-08-12 22:53] LABS: Hemoglobin 10.6 g/dL (12.2-16.2)
--- NOTE | 2017-08-13 08:51 | Discharge Summary ---
General - General Admission date:: 08/12/17 Discharge date: 08/13/17 HPI HPI: this wf was sent from [facility] for eval of sob with hx of chf and copd - she was seen in the ed and treated with o2 and breathing treatment and was admitted with abx and steroids - pt with known cancer and has chronic anxiety and pain - Hospital Course Hospital Course: echo: 2D 1. Left atrium is qualitatively mildly enlarged, left ventricle is normal size, mild concentric left ventricular hypertrophy, visually estimated ejection fraction 55% with no obvious regional wall motion abnormality. 2. The right atrium and right ventricle are normal size and contractility. 3. The aortic valve is minimally thickened and fibrosed. 4. The mitral and tricuspid valvular grossly normal. 5. The pulmonic valve is poorly visualized. 6. No significant pericardial effusion noted. DOPPLER INTERROGATION: Doppler interrogation of the aortic, mitral and tricuspid valvular presence of mild mitral and tricuspid regurgitation, tricuspid and jet velocity insufficient for calculation of the right ventricular systolic pressure, grade 1 diastolic dysfunction seen with tissue Doppler evidence of raised left atrial pressure. CONCLUSION: 1. Mildly enlarged left atrium, normal left ventricular size, mild concentric left ventricular hypertrophy, visually estimated ejection fraction 55% with no obvious regional wall motion abnormality, grade 1 diastolic dysfunction seen with tissue Doppler evidence of raised left atrial pressure. 2. Mild mitral and tricuspid regurgitation 3. No significant pericardial effusion noted. cardiology consult: - Assessment and plan all Dx Assessment and Plan for all problems:: 1. Elevated troponins likely due to cardiac strain in the setting of acute on chronic exacerbation of COPD, hypoxia, anemia and stage IV colon cancer with hospice care. Preliminary echocardiogram shows preserved left ventricular ejection fraction. 2. Recommend transfusion to hemoglobin greater than 10 for improvement of shortness of breath and sinus tachycardia which should help with her CHF also. 3. Medical therapy only (calcium channel myrna or beta myrna if needed for blood pressure, heart rate and possible angina control) with no further cardiac workup in setting of terminal cancer and hospice care. 4. Continue diuretics PRN for edema with monitoring of renal function. We will [facility] with monitoring of blood pressure and heart rate. If needed will add calcium channel myrna or beta- myrna later. If needed will add diuretic for edema. Objective Vital signs: Temp Pulse Resp BP Pulse Ox 97.5 F L 72 18 137/72 96 08/13/17 04:00 08/13/17 05:59 08/13/17 04:00 08/13/17 04:00 08/13/17 05:59 no acute distress - *Routine HEENT Exam Head: Present: normocephalic Eye: Present: PERRL ENT: Present: mucous membranes moist - *Routine Neck Exam Present: full ROM - *Routine Respiratory Exam Present: CTA bilaterally - *Routine Cardiovascular Exam Present: RRR - *Routine Abdominal Exam Present: soft, normoactive bowel sounds, tenderness - *Routine Extremities Exam Present: full ROM - *Routine Skin Exam Present: intact - *Routine Neurological Exam Present: alert, oriented X3 - Routine Psychiatric Exam Present: normal affect, normal thought process Results Labs on day of discharge: Labs from last 24 hours 08/12/17 08/12/17 08/12/17 22:15 20:32 11:11 Hgb 10.6 L D Hct 34.7 L Total Counted Neutrophils % (Manual) Band Neutrophils % Lymphocytes % (Manual) Monocytes % (Manual) Platelet Estimate Macrocytosis POC Glucose 132 H B-Natriuretic Peptide Blood Type Blood Type Confirm O Positive Antibody Screen Crossmatch (AHG) 08/12/17 08/12/17 08/12/17 10:20 10:20 05:15 Hgb Hct Total Counted 100 Neutrophils % (Manual) 87 H Band Neutrophils % 2.0 Lymphocytes % (Manual) 7 L Monocytes % (Manual) 4 Platelet Estimate Normal Macrocytosis 2+ POC Glucose B-Natriuretic Peptide 100 Blood Type O Positive Blood Type Confirm Antibody Screen Negative Crossmatch (AHG) See Detail Preliminary micro results at discharge 08/11/17 21:00 Blood Culture - Preliminary Blood - Additional Comments Rounded with Dr. Fenton all orders per Eliceo DS: Diagnosis - Discharge Diagnosis (1) Elevated troponin Status: Acute (2) Acute exacerbation of chronic obstructive airways disease Status: Acute (3) Bronchitis Status: Acute (4) Anemia Status: Acute (5) High output congestive heart failure Status: Acute (6) Cancer Status: Chronic Discharge Plan - Patient Discharge Instructions ACTIVITY: Continue current activity DIET: continue same diet - Follow up Plan Follow up with: Tg Del Cid APRN [Advanced Practice Nurse] - 1 week Disposition: er [facility] Home Medications: Home Medications Medication Instructions Recorded Confirmed Type alprazolam 1 mg tablet 0.5 mg PO 04/27/17 08/12/17 History citalopram 20 mg tablet 20 mg PO DAILY 04/27/17 08/12/17 History dexamethasone 4 mg tablet 4 mg PO BID 04/27/17 08/12/17 History gabapentin 800 mg tablet 800 mg PO TID 04/27/17 08/12/17 History nicotine 10 mg inhalation cartridge 1 inh INHALATION NEEDED PRN 04/27/1706/25 History promethazine 25 mg tablet 25 mg PO Q8HP PRN 04/27/17 08/12/17 History Oxycodone HCl [Oxycodone (IR) 30mg 45 mg PO Q4H 06/01/17 08/12/17 History Tab] Acetaminophen [Tylenol 500mg 500 mg PO Q4HP PRN 08/12/17 08/12/17 History tablet] Ciprofloxacin HCl [Cipro 500mg Tab] 500 mg PO MOWEFR 08/12/17 08/12/17 History Docusate Sodium [Colace 250mg 250 mg PO BIDP PRN 08/12/17 08/12/17 History capsule] Lactulose [Lactulose 10gm/15ml 30 ml PO DAILY 08/12/17 08/12/17 History Oral Soln] Lansoprazole 15 mg PO DAILY 08/12/17 08/12/17 History Lidocaine [Lidoderm 5% transdermal 3 each TP DAILY 08/12/17 08/12/17 History patch] Oxybutynin Chloride [Ditropan Xl] 5 mg PO BID 08/12/17 08/12/17 History Phenazopyridine HCl [Pyridium 200 mg PO TID 08/12/17 08/12/17 History 200mg Tablet] Polyethylene Glycol 3350 [Miralax 17 gm PO DAILY 08/12/17 08/12/17 History Powder] Sennosides [Senna Laxative] 8.6 mg PO BIDP PRN 08/12/17 08/12/17 History Simethicone [Mylicon 80mg Chewable 160 mg PO QIDP PRN 08/12/17 08/12/17 History Tablet] guaiFENesin [Mucinex 600mg tablet] 1,200 mg PO BID 08/12/17 08/12/17 History metroNIDAZOLE [Flagyl] 500 mg PO BID 08/12/17 08/12/17 History Prescriptions/Medication Reconciliation: Continue nicotine 10 mg inhalation cartridge 1 inh INHALATION NEEDED PRN PRN Reason: Smoking Cessation alprazolam 1 mg tablet 0.5 mg PO 5XDAY gabapentin 800 mg tablet 800 mg PO TID citalopram 20 mg tablet 20 mg PO DAILY dexamethasone 4 mg tablet 4 mg PO BID promethazine 25 mg tablet 25 mg PO Q8HP PRN PRN Reason: Nausea Sennosides [Senna Laxative] 8.6 mg PO BIDP PRN PRN Reason: Constipation Polyethylene Glycol 3350 [Miralax Powder] 17 gm PO DAILY Phenazopyridine HCl [Pyridium 200mg Tablet] 200 mg PO TID Oxybutynin Chloride [Ditropan Xl] 5 mg PO BID guaiFENesin [Mucinex 600mg tablet] 1,200 mg PO BID metroNIDAZOLE [Flagyl] 500 mg PO BID Lansoprazole 15 mg PO DAILY Docusate Sodium [Colace 250mg capsule] 250 mg PO BIDP PRN PRN Reason: constipation Ciprofloxacin HCl [Cipro 500mg Tab] 500 mg PO MOWEFR Simethicone [Mylicon 80mg Chewable Tablet] 160 mg PO QIDP PRN PRN Reason: Gas Pain And Discomfort Acetaminophen [Tylenol 500mg tablet] 500 mg PO Q4HP PRN PRN Reason: PAIN/FEVER Lactulose [Lactulose 10gm/15ml Oral Soln] 30 ml PO DAILY Oxycodone HCl [Oxycodone (IR) 30mg Tab] 45 mg PO Q4H Lidocaine [Lidoderm 5% transdermal patch] 3 each TP DAILY
[2017-08-13 16:15] VITALS: BP 141/71
== END 2017-08-13 17:15 ==
LOC: 2ND 20:34 → ER 20:34 → 2ND 08-12 02:00
PROVIDERS: ADMIT Emergency Medicine; ATTEND Emergency Medicine